=== PATIENT | male | born 1970 | race Caucasian/White ===

== ENCOUNTER 2016-11-04 17:14 | Emergency (ER) | payer BC, OTHER ==
[2016-11-04 17:26] VITALS: BP 137/96
[2016-11-04] MEDS ORDERED: Lidocaine 2% VISCOUS* 15 ML UDC PO ONE (17:49)
[2016-11-04] MEDS ORDERED: Al Hydrox/Mg Hydrox/Simet LIQ* 30 ML UDC PO ONE (17:49)
--- NOTE | 2016-11-04 17:49 | UC ---
Abdominal Pain Male HPI - HPI Summary HPI Summary: The patient comes in today for: 1. Abdominal pain (epigastric) Onset: 8 hours. Palliative/provocative: Nothing makes it better or worse. Leaning forward makes it worse. Leaning back make it "deeper." Quality: Sharp Region: Epigastric. Severity: 9/10 Time: Comes and goes, but mostly there. Associated symptoms: Dysphagia: One and off for a couple of years. He states that it is gotten worse recently to the point of having to drink liquid even with salad. Previous disease (pancreas/stomach): None. Regular provider: Dr. Gould. * - History of Current Complaint Chief Complaint: UCAbdominalPain Stated Complaint: ABDOMINAL PAIN, AND VOMITING Time Seen by Provider: 11/04/16 17:44 Hx Obtained From: Patient, Family/Site Safety Coordinator - Allergies/Home Medications Allergies/Adverse Reactions: Allergies Allergy/AdvReac Type Severity Reaction Status Date / Time No Known Allergies Allergy Verified 11/04/16 17:26 Home Medications: Home Medications Beclomethasone 40 MCG MDI(NF) [Qvar 40 MCG MDI(NF)] 11/04/16 [History] Oxybutynin Chloride (Bulk) [Oxybutinin Chloride] 11/04/16 [History] methylPREDNISolone TAB* [Medrol TAB*] 11/04/16 [History] PMH/Surg Hx/FS Hx/Imm Hx Previously Healthy: No - Hyperactive bladder? Endocrine History Of: Denies: Diabetes, Thyroid Disease, Hyperthyroidism, Hypothyroidism, Dyslipidemia Cardiovascular History Of: Denies: Cardiac Disorders, Hypertension, Pacemaker/ICD, Myocardial Infarction , Congestive Heart Failure, Atrial Fibrillation, Deep Vein Thrombosis, Bleeding Disorders Respiratory History Of: Reports: Asthma Denies: COPD, Bronchitis, Pneumonia, Pulmonary Embolism GI/ History Of: Reports: Gastroesophageal Reflux - Suspected due to history of dysphagia. Denies: Ulcer, Gastrointestinal Bleed, Gall Bladder Disease, Kidney Stones, Diverticulitis, Renal Disease, Urosepsis Neurological History Of: Denies: TIA, CVA, Dementia, Seizures, Migraine Psychological History Of: Denies: Anxiety, Depression, Bipolar Disorder, Schizophrenia, Post Traumatic Stress Disorder Cancer History Of: Denies: Lung Cancer, Colorectal Cancer, Breast Cancer, Prostate Cancer, Cervical Cancer Other History Of: Negative For: HIV, Hepatitis B, Hepatitis C, Anticoagulant Therapy - Surgical History Surgical History: Yes Surgery Procedure, Year, and Place: ANKLE SURGERY, BACK (L5) DISCECTOMY 2003, RIGHT HAND SURGERY X2, vasectomy - Family History Known Family History: Positive: Cardiac Disease, Hypertension - Social History Occupation: Employed Full-time Alcohol Use: Occasionally Substance Use Type: None Smoking Status (MU): Former Smoker Amount Used/How Often: tin per week Have You Smoked in the Last Year: No When Did the Patient Quit Smoking/Using Tobacco: one year long ago Review of Systems Constitutional: Chills Skin: Negative Eyes: Negative ENT: Negative Respiratory: Negative Cardiovascular: Negative Gastrointestinal: Abdominal Pain, Vomiting - Vomited: 4 times/5 hours-- yesterday foods--"Oreo cookies.", Diarrhea - Diarrhea: 2 stoools/5 hours. Genitourinary: Negative All Other Systems Reviewed And Are Negative: Yes Physical Exam Triage Information Reviewed: Yes Appearance: Well-Nourished, Pain Distress - He can't find a comfortable position and is moving during the history taking, moaning at times. Vital Signs: Initial Vital Signs Temp 99.8 F 11/04/16 17:23 Pulse 114 11/04/16 17:23 Resp 18 11/04/16 17:23 BP 137/96 11/04/16 17:23 Pulse Ox 96 11/04/16 17:23 Vital Signs Reviewed: Yes Eyes: Positive: Conjunctiva Clear. Negative: Discharge ENT: Positive: Hearing grossly normal. Negative: Pharyngeal erythema, Nasal congestion, Nasal drainage, TM bulging, TM dull, TM red, Tonsillar swelling, Tonsillar exudate Dental: Negative: Gross Decay/Caries @, Dental Fracture @ Neck: Positive: Supple, Nontender, No Lymphadenopathy. Negative: Nuchal Rigidity Respiratory: Positive: Chest non-tender, Lungs clear, No respiratory distress, No accessory muscle use. Negative: Crackles, Wheezing Cardiovascular: Positive: RRR, No Murmur Abdomen Description: Positive: No Organomegaly, Soft - No marked guarding, Distended, Peritoneal Signs - He had rebound tenderness to palpation of the epigastric area. There was also increased tympany.. Negative: Nontender, Guarding Musculoskeletal: Positive: Strength Intact, ROM Intact, No Edema Neurological: Positive: Alert, Muscle Tone Normal Psychological: Positive: Age Appropriate Behavior, Consolable Skin: Negative: rashes, breakdown Abd Pain Male Course/Dx - Course Course Of Treatment: Patient was told that I recommend that he go to the ER for evaluation fo abdominal pain. He agreed to go by private car. - Differential Dx/Clinical Impression Provider Diagnoses: epigastric abdominal pain. - Physician Notification/Consults Discussed Patient Care With: Dr. Hickman Time Discussed With Above Provider: 18:04 Discharge - Discharge Plan Condition: Stable Disposition: AGAINST MEDICAL ADVICE Additional Instructions: Please go directly to the [facility] ER.
== END 2016-11-04 18:09 | disposition left against medical advice (07) ==
LOC: UCEAST 17:14
DX: R10.13 Epigastric pain (principal); Z87.891 Personal history of nicotine dependence
CPT/HCPCS: 99212; A9270-GY; G0463

== ENCOUNTER 2016-11-04 18:23 | Inpatient (IN) | payer OTHER ==
[2016-11-04] MEDS ORDERED: NS 0.9% 1000 ML* 2,000 ML IV ONE (19:08)
[2016-11-04] MEDS ORDERED: Al Hydrox/Mg Hydrox/Simet LIQ* 30 ML UDC PO ONE (19:08)
[2016-11-04] MEDS ORDERED: Ketorolac INJ* 30 MG/ML 1 ML VIAL IV ONE (19:08)
[2016-11-04] MEDS ORDERED: Lidocaine 2% VISCOUS* 15 ML UDC PO ONE (19:08)
[2016-11-04 19:34] LABS: Hematocrit 50 % (42-52); Hemoglobin 17.2 g/dl (14.0-18.0); Mean Corpuscular HGB Conc 34 g/dl (31-36); Mean Corpuscular Hemoglobin 30 pg (27-31); Mean Corpuscular Volume 88 fL (80-94); Mean Platelet Volume 8 um3 (7.4-10.4); Red Blood Count 5.69 10^6/ul (4.0-5.4); Red Cell Distribution Width 13 % (10.5-15); White Blood Count 10.5 10^3/ul (3.5-10.8)
[2016-11-04 19:50] LABS: BUN/Creatinine Ratio 16.3 (8-20); C Reactive Protein 21.4 mg/L (< 5.00); EGFR African American 81.5 (>60); EGFR Non-African American 63.3 (>60); Globulin 3.2 g/dL (2-4); Magnesium 1.8 mg/dL (1.9-2.7); Potassium 3.5 mmol/L (3.5-5.0); Total Bilirubin 1.3 mg/dL (0.2-1.0); Total Protein 7.2 g/dL (6.4-8.9)
--- NOTE | 2016-11-04 19:50 | ED ---
Abdominal Pain/Male - HPI Summary HPI Summary: Patient arrives to ED as a transfer from with CC of epigastric pain and vomiting since this afternoon. Pain is 10/10, better after vomiting. Denies diarrhea or constipation. States he has vomited 4X and all contents from last nights dinner which were not digested. He feels he may have an SBO. States he has experienced epigastric pain which has subsided in the last with viscous lidocaine, but never associated vomiting with undigested contents. Last BM was today at 2pm. Unable to eat or drink without vomiting. Denies nausea. States he has been on prednisone for many months d/t his asthma. Asthma stable and he denies SOB. Denies chest pain. Denies smoking or other health problems. No history of abdominal surgeries. Patient not a diabetic. - History of Current Complaint Hx Obtained From: Patient Onset/Duration: Sudden Onset Timing: Constant Severity Initially: Moderate Severity Currently: Moderate Pain Intensity: 7 Pain Scale Used: 0-10 Numeric Location: Epigastric Character: Sharp Aggravating Factor(s): Food Alleviating Factor(s): Vomiting Associated Signs And Symptoms: Positive: Negative - Risk Factors Testicular Torsion: Negative Cardiac Risk Factors: Negative <Makenna Hernandez - Last Filed: 11/07/16 08:06> <Abdoulaye Chun - Last Filed: 11/07/16 20:59> - History of Current Complaint Chief Complaint: EDAbdPain Stated Complaint: ABD PAIN/CONV CARE Time Seen by Provider: 11/04/16 18:41 - Allergies/Home Medications Allergies/Adverse Reactions: Allergies Allergy/AdvReac Type Severity Reaction Status Date / Time No Known Allergies Allergy Verified 11/04/16 17:26 PMH/Surg Hx/FS Hx/Imm Hx Previously Healthy: Yes Endocrine/Hematology History: Denies: Hx Anticoagulant Therapy, Hx Diabetes, Hx Thyroid Disease Cardiovascular History: Denies: Hx Congestive Heart Failure, Hx Deep Vein Thrombosis, Hx Hypertension , Hx Myocardial Infarction, Hx Pacemaker/ICD Respiratory History: Reports: Hx Asthma Denies: Hx Chronic Obstructive Pulmonary Disease (COPD), Hx Lung Cancer, Hx Pneumonia, Hx Pulmonary Embolism GI History: Denies: Hx Gall Bladder Disease, Hx Gastrointestinal Bleed, Hx Ulcer, Hx Urosepsis History: Denies: Hx Dialysis, Hx Kidney Stones, Hx Renal Disease Sensory History: Denies: Hx Hearing Aid Neurological History: Denies: Hx Dementia, Hx Migraine, Hx Seizures, Hx Transient Ischemic Attacks (TIA) Psychiatric History: Denies: Hx Anxiety, Hx Depression, Hx Panic Disorder, Hx Schizophrenia, Hx Bipolar Disorder - Surgical History Surgery Procedure, Year, and Place: ANKLE SURGERY, BACK (L5) DISCECTOMY 2003, RIGHT HAND SURGERY X2, vasectomy Infectious Disease History: No Infectious Disease History: Denies: History Other Infectious Disease, Traveled Outside the [place] in Last 30 Days - Family History Known Family History: Positive: Cardiac Disease, Hypertension - Social History Occupation: Employed Full-time Lives: With Family Alcohol Use: None Hx Substance Use: No Substance Use Type: Reports: None Smoking Status (MU): Former Smoker Amount Used/How Often: tin per week Have You Smoked in the Last Year: No <Makenna Hernandez - Last Filed: 11/07/16 08:06> Review of Systems Constitutional: Negative Eyes: Negative ENT: Negative Cardiovascular: Negative Respiratory: Negative Positive: Abdominal Pain - epigastric, Vomiting - 4X Positive: no symptoms reported, see HPI Musculoskeletal: Negative Skin: Negative Neurological: Negative Positive: Anxious All Other Systems Reviewed And Are Negative: Yes <Makenna Hernandez - Last Filed: 11/07/16 08:06> Physical Exam Triage Information Reviewed: Yes Vital Signs On Initial Exam: Initial Vitals Temp Pulse Resp BP Pulse Ox 99.5 F 114 18 136/92 95 11/04/16 18:25 11/04/16 18:25 11/04/16 18:25 11/04/16 18:25 11/04/16 18:25 Vital Signs Reviewed: Yes Appearance: Positive: Well-Appearing, Well-Nourished, Pain Distress Skin: Positive: Warm, Skin Color Reflects Adequate Perfusion Head/Face: Positive: Normal Head/Face Inspection Eyes: Positive: EOMI, MARGIE ENT: Positive: Pharynx normal Neck: Positive: Supple, Nontender Respiratory/Lung Sounds: Positive: Wheezes - at baseline per patient d/t asthma Cardiovascular: Positive: Normal, RRR Abdomen Description: Positive: Soft, Guarding - at epigastrum, Other: - tenderness over epigastrum, non-tender in all 4 quadrants Musculoskeletal: Positive: Normal, Strength/ROM Intact Neurological: Positive: Normal, Speech Normal Psychiatric: Positive: Normal AVPU Assessment: Alert - [place] Coma Scale Coma Scale Total: 15 <Makenna Hernandez - Last Filed: 11/07/16 08:06> Vital Signs On Initial Exam: Initial Vitals Temp Pulse Resp BP Pulse Ox 99.5 F 114 18 136/92 95 11/04/16 18:25 11/04/16 18:25 11/04/16 18:25 11/04/16 18:25 11/04/16 18:25 <Abdoulaye Chun - Last Filed: 11/07/16 20:59> Diagnostics - Vital Signs Vital Signs Temp Pulse Resp BP Pulse Ox 11/04/16 18:25 99.5 F 114 18 136/92 95 - Laboratory Result Diagrams: 11/05/16 06:15 11/07/16 06:35 Lab Statement: Any lab studies that have been ordered have been reviewed, and results considered in the medical decision making process. <Makenna Hernandez - Last Filed: 11/07/16 08:06> - Vital Signs Vital Signs Temp Pulse Resp BP Pulse Ox 11/05/16 00:26 82 16 126/77 93 11/04/16 23:30 81 18 129/85 93 11/04/16 22:40 95 18 133/91 94 11/04/16 22:39 16 11/04/16 21:27 99 18 123/90 93 11/04/16 18:25 99.5 F 114 18 136/92 95 - Laboratory Lab Results: Lab Results 11/04/16 11/04/16 11/04/16 Range/Units 19:25 19:25 20:55 WBC 10.5 (3.5-10.8) 10^3/ul RBC 5.69 H (4.0-5.4) 10^6/ul Hgb 17.2 (14.0-18.0) g/dl Hct 50 (42-52) % MCV 88 (80-94) fL MCH 30 (27-31) pg MCHC 34 (31-36) g/dl RDW 13 (10.5-15) % Plt Count 196 (150-450) 10^3/ul MPV 8 (7.4-10.4) um3 Neut % (Auto) 86.6 H (38-83) % Lymph % (Auto) 7.1 L (25-47) % [place] % (Auto) 6.0 (1-9) % Eos % (Auto) 0.2 (0-6) % Baso % (Auto) 0.1 (0-2) % Absolute Neuts (auto) 9.1 H (1.5-7.7) 10^3/ul Absolute Lymphs (auto) 0.7 L (1.0-4.8) 10^3/ul Absolute Monos (auto) 0.6 (0-0.8) 10^3/ul Absolute Eos (auto) 0 (0-0.6) 10^3/ul Absolute Basos (auto) 0 (0-0.2) 10^3/ul Absolute Nucleated RBC 0 10^3/ul Nucleated RBC % 0 Sodium 133 (133-145) mmol/L Potassium 3.5 (3.5-5.0) mmol/L Chloride 100 L (101-111) mmol/L Carbon Dioxide 27 (22-32) mmol/L Anion Gap 6 (2-11) mmol/L BUN 20 (6-24) mg/dL Creatinine 1.23 H (0.67-1.17) mg/dL Est GFR ( Amer) 81.5 (>60) Est GFR (Non-Af Amer) 63.3 (>60) BUN/Creatinine Ratio 16.3 (8-20) Glucose 97 (70-100) mg/dL Calcium 9.0 (8.6-10.3) mg/dL Magnesium 1.8 L (1.9-2.7) mg/dL Total Bilirubin 1.30 H (0.2-1.0) mg/dL AST 34 (13-39) U/L ALT 133 H (7-52) U/L Alkaline Phosphatase 68 (34-104) U/L C-Reactive Protein 21.40 H (< 5.00) mg/L Total Protein 7.2 (6.4-8.9) g/dL Albumin 4.0 (3.2-5.2) g/dL Globulin 3.2 (2-4) g/dL Albumin/Globulin Ratio 1.3 (1-3) Amylase 34 (29-103) U/L Lipase 26 (11.0-82.0) U/L Urine Color Yellow Urine Appearance Clear Urine pH 5.0 (5-9) Ur Specific [place] 1.016 (1.010-1.030) Urine Protein Negative (Negative) Urine Ketones Negative (Negative) Urine Blood Negative (Negative) Urine Nitrate Negative (Negative) Urine Bilirubin Negative (Negative) Urine Urobilinogen Negative (Negative) Ur Leukocyte Esterase Negative (Negative) Urine Glucose Negative (Negative) Result Diagrams: 11/05/16 06:15 11/07/16 06:35 Lab Statement: Any lab studies that have been ordered have been reviewed, and results considered in the medical decision making process. <Abdoulaye Chun - Last Filed: 11/07/16 20:59> Re-Evaluation - Re-Evaluation First Eval Change: Improved - Patient improved with toradol and zofran, and now tolerating PO Second Eval Change: Worse - vomited and now epigastric pain worse Third Eval Change: Unchanged - patient not improved and failed pain management 3x <Makenna Hernandez - Last Filed: 11/07/16 08:06> Abdominal Pain Fem Course/Dx - Course Course Of Treatment: Patient with severe epigastric pain and 1x episode of vomiting, not tolerating PO in ED - vomited twice after arrival. CT without PO contrast ordered. Pain management, GI cocktail. CT shows possible SBO. Patient feeling better and asking to be DC'd. PO challenge and plan to send home with pain management and clear liquid diet for 24 hours. Upon discharge, patient began to vomit again with severe epigastric pain. PO contrast given for better picture per MD. SBO confirmed. Dr. Santizo consulted at 1:20a. Patient refusing NG tube at this time. Dr. Navarro called at 1:40a for admission. Admitted to [facility] for intractable pain and surgical consult. - Diagnoses Differential Diagnosis/HQI/PQRI: Bowel Obstruction, Gall Bladder Disease, Ischemic Bowel, Peptic Ulcer Disease <Makenna Hernandez - Last Filed: 11/07/16 08:06> - Course Assessment/Plan: I was available for consultation. This patient was seen by mid level provider. The patient was not presented, seen, or examined by me. WR. <Abdoulaye Chun - Last Filed: 11/07/16 20:59> - Diagnoses Provider Diagnoses: Small bowel obstruction Discharge <Makenna Hernandez - Last Filed: 11/07/16 08:06> <Abdoulaye Chun - Last Filed: 11/07/16 20:59> - Discharge Plan Condition: Good Disposition: ADMITTED TO [facility]
--- NOTE | 2016-11-04 20:21 | RAD ---
CLINICAL HISTORY: Vomiting, abdominal pain, delayed gastric emptying COMPARISON: None TECHNIQUE: Multiple contiguous axial CT scans were obtained of the abdomen and pelvis, without intravenous contrast enhancement. Coronal and sagittal multiplanar reformations are submitted for review. Oral contrast was not administered. FINDINGS: The study is limited by the lack of intravenous contrast. This limits evaluation of the solid organs and vasculature. LUNG BASES: The lung bases are clear. LIVER: The liver is diffusely low in attenuation compared to the spleen. There are no focal hepatic parenchymal masses. BILE DUCTS: There is no intrahepatic or extrahepatic biliary dilatation. GALLBLADDER: The gallbladder is normal, without pericholecystic inflammatory change. PANCREAS: The pancreas is normal, without mass or ductal dilatation. SPLEEN: Normal in size and appearance. UPPER GI TRACT: Evaluation of the gastrointestinal tract is limited by incomplete gastric distention. The upper GI tract is unremarkable. SMALL BOWEL AND MESENTERY: There is diffuse distention and mild dilatation of the proximal small bowel. There is transition to decompressed small bowel within the midabdomen. COLON: The colon is normal in contour, course, caliber. There is no pericolonic inflammatory change. ADRENALS: Normal bilaterally. KIDNEYS: The kidneys are normal in shape, size, contour, and axis. There is no hydronephrosis or nephrolithiasis. BLADDER: The bladder is smooth in contour. PELVIC ORGANS: The prostate gland is normal. The seminal vesicles are symmetric. AORTA: The aorta is normal. IVC: Unremarkable LYMPH NODES: There is no lymphadenopathy by size criteria. ABDOMINAL WALL: There is no evidence for abdominal wall hernia. BONES AND SOFT TISSUES: There are mild diffuse degenerative changes. OTHER: None IMPRESSION: 1. DISTENTION WITH MILD DILATATION OF THE PROXIMAL SMALL BOWEL WITH TRANSITION TO DECOMPRESSED SMALL BOWEL IN THE MIDABDOMEN CONSISTENT WITH EARLY OR PARTIAL SMALL BOWEL OBSTRUCTION. 2. FATTY INFILTRATION OF THE LIVER.
[2016-11-04 21:07] LABS: Urine Bilirubin Negative (Negative); Urine Glucose Negative (Negative); Urine Nitrite Negative (Negative)
[2016-11-04] MEDS ORDERED: Morphine INJ* 2 MG/ML 1 ML CARPUJECT IV ONE (22:14)
[2016-11-04] MEDS ORDERED: Ondansetron INJ* 2 MG/ML VIAL IV ONE (22:14)
[2016-11-04] MEDS ORDERED: Iohexol 300* (CONTRAST) 10 ML SDV IV ONE (22:50)
--- NOTE | 2016-11-05 01:43 | HP ---
H&P (Free Text) History and Physical: PCP: Earl Velásquez MD Date/Time of Evaluation: 11/05/2016 0145 CC: abdominal pain HPI: Mr Snyder is a 46YO male presenting with rapid onset sharp epigastric pain associated with N/V/D but without F/C or other issues. He denies HX abdominal surgery, but does have a HX of similar episode. Last bowel movement was this evening and loose, no bloody or black content. He denies exacerbating or alleviating factors. Work up is notable for a CT abd/pel read as early SBO. Vitals were initially tachycardic, but normalized w/ IVFs. Labs reveal a stable creatinine of 1.23, total bilirubin of 1.3, & AST/ALT of 34/133. PMedHx asthma Allergies No Known Allergies Allergy (Verified 11/04/16 17:26) Ambulatory Orders Nursing to reconcile PSurgHx R 3rd finger trigger release L-spine surgery vasectomy R ankle ORIF SocHx: HX light cigarettes & heavy chewing tobacco but none now, occasional alcohol, no recreational drugs; lives with his , works at [employer]; full code status FamHx: Father: DM2, Mother: OA ROS: as above, otherwise reviewed and all were negative Constitutional: NAD, normally developed, obese white male vitals: Vital Signs Temp 37.5 C 11/04/16 18:25 Pulse 82 11/05/16 00:26 Resp 16 11/05/16 00:26 BP 126/77 11/05/16 00:26 Pulse Ox 93 11/05/16 00:26 Intake & Output 11/04/16 11/04/16 11/05/16 11:59 23:59 11:59 Intake Total 1999 Balance 1999 Weight 195 lb Intake: IV Fluids 1999 HEENM: atraumatic; sclera/conjunctiva: non-icteric/clear; hearing: clinically intact; oropharynx: clear, mucosa moist Neck: soft tissue: non-tender; thyroid: normal Pulmonary: clear to auscultation bilaterally, good aeration, no accessory muscle use CV: RR/RR, normal S1S2, no carotid bruit, no jugular venous distention, 2+ B DP/ PT, no edema Abdominal: soft, non-distended, mildly diffusely tender worst in epigastrum without rebound/guarding/rigidity, normoactive bowel sounds, no hepatosplenomegaly or masses, no costovertebral angle tenderness Musculoskeletal: general: grossly intact; gait: stable Integumental: normal appearance and texture Psychiatric orientation: AA&O to PPS affect: calm mood: cooperative eye contact: good content: reliable responses: timely insight: good Testing: Lab Results 11/04/16 11/04/16 11/04/16 Range/Units 19:25 19:25 20:55 WBC 10.5 (3.5-10.8) 10^3/ul RBC 5.69 H (4.0-5.4) 10^6/ul Hgb 17.2 (14.0-18.0) g/dl Hct 50 (42-52) % MCV 88 (80-94) fL MCH 30 (27-31) pg MCHC 34 (31-36) g/dl RDW 13 (10.5-15) % Plt Count 196 (150-450) 10^3/ul MPV 8 (7.4-10.4) um3 Neut % (Auto) 86.6 H (38-83) % Lymph % (Auto) 7.1 L (25-47) % [place] % (Auto) 6.0 (1-9) % Eos % (Auto) 0.2 (0-6) % Baso % (Auto) 0.1 (0-2) % Absolute Neuts (auto) 9.1 H (1.5-7.7) 10^3/ul Absolute Lymphs (auto) 0.7 L (1.0-4.8) 10^3/ul Absolute Monos (auto) 0.6 (0-0.8) 10^3/ul Absolute Eos (auto) 0 (0-0.6) 10^3/ul Absolute Basos (auto) 0 (0-0.2) 10^3/ul Absolute Nucleated RBC 0 10^3/ul Nucleated RBC % 0 Sodium 133 (133-145) mmol/L Potassium 3.5 (3.5-5.0) mmol/L Chloride 100 L (101-111) mmol/L Carbon Dioxide 27 (22-32) mmol/L Anion Gap 6 (2-11) mmol/L BUN 20 (6-24) mg/dL Creatinine 1.23 H (0.67-1.17) mg/dL Est GFR ( Amer) 81.5 (>60) Est GFR (Non-Af Amer) 63.3 (>60) BUN/Creatinine Ratio 16.3 (8-20) Glucose 97 (70-100) mg/dL Calcium 9.0 (8.6-10.3) mg/dL Magnesium 1.8 L (1.9-2.7) mg/dL Total Bilirubin 1.30 H (0.2-1.0) mg/dL AST 34 (13-39) U/L ALT 133 H (7-52) U/L Alkaline Phosphatase 68 (34-104) U/L C-Reactive Protein 21.40 H (< 5.00) mg/L Total Protein 7.2 (6.4-8.9) g/dL Albumin 4.0 (3.2-5.2) g/dL Globulin 3.2 (2-4) g/dL Albumin/Globulin Ratio 1.3 (1-3) Amylase 34 (29-103) U/L Lipase 26 (11.0-82.0) U/L Urine Color Yellow Urine Appearance Clear Urine pH 5.0 (5-9) Ur Specific [place] 1.016 (1.010-1.030) Urine Protein Negative (Negative) Urine Ketones Negative (Negative) Urine Blood Negative (Negative) Urine Nitrate Negative (Negative) Urine Bilirubin Negative (Negative) Urine Urobilinogen Negative (Negative) Ur Leukocyte Esterase Negative (Negative) Urine Glucose Negative (Negative) CT abd/pel WO, personally reviewed: IMPRESSION: 1. DISTENTION WITH MILD DILATATION OF THE PROXIMAL SMALL BOWEL WITH TRANSITION TODECOMPRESSED SMALL BOWEL IN THE MIDABDOMEN CONSISTENT WITH EARLY OR PARTIAL SMALL BOWELOBSTRUCTION. 2. FATTY INFILTRATION OF THE LIVER. Impression: 46M presenting with N/V & abdominal pain with finding of SBO on CT abd/pel WO DIAGNOSIS & PLAN Primary SBO : bowel rest, NPO x/ meds w/ sips H2O : IVFs : pain control : consider surgical consult if no improvement w/i 48H, sooner for worsening : supportive care elevated total bilirubin & ALT : check limited US RUQ hypoMagnesemia : replace Secondary asthma : albuterol nebs PRN Admission Rational: inpatient for management of SBO not anticipated to improve adequately to allow for discharge w/i 48h DVTp: heparin SQ Code Status: full HCP:
[2016-11-05] MEDS ORDERED: Magnesium Sulfate 2 GM IV* 2 GM/50 ML BAG IVPB ONE (01:45)
[2016-11-05] MEDS ORDERED: Albuterol 2.5 MG/3 ML NEB.SOL* (0.083%) INH PRN (01:45)
[2016-11-05] MEDS ORDERED: Melatonin (NF) 3 MG TAB PO PRN (01:45)
[2016-11-05] MEDS ORDERED: Acetaminophen TAB* 325 MG PO PRN (01:45)
[2016-11-05] MEDS: HYDROmorphone INJ* 1 MG/ML CARPUJECT SYRINGE IV PRN ×2 (02:10→03:31)
[2016-11-05] MEDS: NS 0.9% 1000 ML* 1,000 ML IV SCH ×3 (02:55→18:03)
[2016-11-05] MEDS: Ondansetron INJ* 2 MG/ML VIAL IV PRN (03:30)
[2016-11-05 07:11] LABS: Hematocrit 44 % (42-52); Hemoglobin 15.5 g/dl (14.0-18.0); Mean Corpuscular HGB Conc 35 g/dl (31-36); Mean Corpuscular Hemoglobin 31 pg (27-31); Mean Corpuscular Volume 88 fL (80-94); Mean Platelet Volume 8 um3 (7.4-10.4); Red Blood Count 5.02 10^6/ul (4.0-5.4); Red Cell Distribution Width 14 % (10.5-15); White Blood Count 10.1 10^3/ul (3.5-10.8)
[2016-11-05 07:23] LABS: Albumin 3.4 g/dL (3.2-5.2); BUN/Creatinine Ratio 14.8 (8-20); Calcium 7.8 mg/dL (8.6-10.3); Direct Bilirubin 0.2 mg/dL (0.03-0.18); EGFR African American 94.7 (>60); EGFR Non-African American 73.6 (>60); Globulin 2.6 g/dL (2-4); Potassium 3.5 mmol/L (3.5-5.0); Total Bilirubin 1.2 mg/dL (0.2-1.0)
--- NOTE | 2016-11-05 07:58 | RAD ---
CLINICAL HISTORY: Epigastric pain and emesis COMPARISON: Similar CT examination dated November 04, 2016 TECHNIQUE: Contrast enhanced CT examination of the abdomen and pelvis from the lung bases through the initial tuberosities. The patient received 100 mL Omnipaque 300 intravenously prior to imaging.The patient received oral contrast as well prior to imaging. FINDINGS: VISUALIZED LUNG BASES: There is dependent hypoventilatory change at the right lung base greater than the left. Otherwise the visualized lung bases are grossly clear. There is no pleural effusion. ABDOMEN AND PELVIS: The liver is homogenously hypodense. There are no focal liver masses or intrahepatic biliary duct dilatation. The spleen, pancreas and adrenal glands are grossly normal in appearance. The gallbladder is normal. The kidneys are normal in appearance without focal mass, calcification or signs of hydronephrosis. The oral contrast has only progressed as far as the mid ileum. There is dilatation of the small bowel measuring up to 3.6 cm in diameter with air-fluid levels visualized. The transition point from dilated to decompressed small bowel occurs in the right mid level abdomen approximately the mid to distal ileum (coronal image 38 of 121). There is gas and stool seen throughout the length of the colon but the colon is mostly decompressed. The patient's normal appendix is identified in the right lower quadrant (coronal image 34) There is no gross retroperitoneal or mesenteric lymphadenopathy. There is trace ascites tracking along the right paracolic gutter (image 78 of 112). The pelvic viscera is normal in appearance. A right vasectomy clip is incidentally noted. The abdominal aorta and iliac arteries are normal in course and diameter. Degenerative changes include multilevel loss of intervertebral disc height involving the lower thoracic and lumbar spine.There are no sinister bone lesions. IMPRESSION: 1. CT findings are compatible with partial small bowel obstruction with a transition point identified at the mid to distal ileum at the mid-level right abdomen. 2. Hepatic steatosis. 3. There are additional chronic, degenerative and iatrogenic findings as described in the body of the report.
[2016-11-05] MEDS: Pantoprazole IV* 40 MG IV SCH (09:24)
--- NOTE | 2016-11-05 09:32 | RAD ---
Indication: Elevated liver enzymes. Real-time sonography of the right upper quadrant was performed. The liver measures 18 cm in length. It is diffusely increased in echogenicity consistent with hepatic steatosis. The gallbladder demonstrates no gallstones, pericholecystic fluid or wall thickening. Common duct measures 4 mm. Right kidney measures 11.0 x 5.1 x 4.9 cm with no hydronephrosis. Pancreas demonstrates no mass or pancreatic duct dilatation. IMPRESSION: Echogenic liver consistent with hepatic steatosis. No evidence of cholelithiasis or biliary duct dilatation is noted.
--- NOTE | 2016-11-05 12:13 | PN ---
Subjective Date of Service: 11/05/16 Interval History: Patient seen this morning. Still having some epigastric pain. Has been having frequent loose stools. No nausea. Family History: Unchanged from Admission Social History: Unchanged from Admission Past Medical History: Unchanged from Admission Objective Active Medications: Acetaminophen (Tylenol Tab*) 650 mg PO Q6H PRN Albuterol (Ventolin 2.5 Mg/3 Ml Neb.Kristin*) 2.5 mg INH Q2H PRN Heparin Sodium (Porcine) (Heparin Vial(*)) 5,000 units SUBCUT Q8HR ANA LAURA Hydromorphone HCl (Dilaudid Iv*) 1 mg IV Q2H PRN Sodium Chloride (Ns 0.9% 1000 Ml*) 1,000 mls @ 125 mls/hr IV PER RATE ANA LAURA Melatonin (Melatonin (Nf)) 3 mg PO BEDTIME PRN; Protocol Ondansetron HCl (Zofran Inj*) 4 mg IV Q6H PRN Pantoprazole Sodium (Protonix Iv*) 40 mg IV DAILY [facility] Vital Signs 11/05/16 11/05/16 11/05/16 02:10 02:45 03:04 Temperature 99.8 F Pulse Rate 88 Respiratory 20 20 20 Rate Blood Pressure 127/77 (mmHg) O2 Sat by Pulse 93 Oximetry 11/05/16 11/05/16 11/05/16 03:10 03:31 04:31 Temperature Pulse Rate Respiratory 20 20 20 Rate Blood Pressure (mmHg) O2 Sat by Pulse Oximetry 11/05/16 11/05/16 11/05/16 07:56 08:02 09:48 Temperature 98.4 F Pulse Rate 83 85 Respiratory 16 16 14 Rate Blood Pressure 125/71 (mmHg) O2 Sat by Pulse 94 96 Oximetry Oxygen Devices in Use Now: None Appearance: Middle-aged, M, sitting in bed in NAD Eyes: No Scleral Icterus Ears/Nose/Mouth/Throat: Mucous Membranes Moist Neck: NL Appearance and Movements; NL JVP Respiratory: Symmetrical Chest Expansion and Respiratory Effort, Clear to Auscultation Cardiovascular: NL Sounds; No Murmurs; No JVD, RRR Abdominal: - - Soft, non-distended, TTP in RLQ and epigastric area, BS+ Lymphatic: No Cervical Adenopathy Extremities: No Edema Skin: No Rash or Ulcers Neurological: Alert and Oriented x 3 Result Diagrams: 11/05/16 06:15 11/05/16 06:15 Assess/Plan/Problems-Billing Assessment: pSBO in a 46 yo M with hx of asthma - Patient Problems (1) Partial small bowel obstruction Current Visit: Yes Comment: Symptoms seem to be improving. Appreciate surgery assistance. Sips of clears today. Continue IVF and analgesia. (2) Transaminitis Current Visit: Yes Comment: mild. US unremarkable, trending back down. (3) DVT prophylaxis Current Visit: Yes Comment: HSQ Status and Disposition: Inpatient for SBO
--- NOTE | 2016-11-05 14:58 | CONS ---
CONSULTATION REPORT: DATE OF CONSULT: 11/05/16 REFERRING PROVIDER: Dr. Yuval Cordero, Hospitalist. LOCATION: The patient is seen in his hospital bed on the 4th floor on 11/05/16. REASON FOR CONSULTATION: Abdominal pain, nausea, and vomiting and possible small bowel obstruction. HISTORY OF PRESENT ILLNESS: Mr. Dangelo Snyder is a 46-year-old gentleman with a history of asthma, who otherwise is healthy, who presented to the emergency room after he developed onset of epigastric abdominal pain sometime yesterday morning. This was followed by nausea and vomiting. He noted the vomitus contained what he had eaten the night before including undigested food as well as Oreo cookies. Did not have any diarrhea that day, but as the pain became quite severe, he presented to the emergency room last evening. He had had no blood per rectum. There has been no hematemesis. He had some pain that radiates through to his mid back area. When seen in the emergency room, he was noted to be slightly tachycardic, but was afebrile. Laboratory values showed a normal white blood cell count and a slightly elevated creatinine. He had a total bilirubin of 1.3 with a C- reactive protein of 21.4. He underwent 2 CT scans, initial one was done without oral or IV contrast, which showed finding congruent for some proximally distended small bowel suggesting an early small bowel obstruction. He subsequently underwent a second CAT scan, which showed CAT scan finding compatible with a partial small bowel obstruction with perhaps a transition point noted in the [id number] ileum. He also underwent an ultrasound of his right upper quadrant due to his mild elevation in his total bilirubin and this study was unremarkable. He has been admitted to the hospitalist service, kept n.p.o., and started on IV fluids, and surgical consultation was obtained. Since his admission to the 4th floor last night, he said he has had multiple watery loose bowel movements with flatus. He still has the epigastric discomfort; however, does not have generalized crampy abdominal pain and has not had any further nausea or vomiting. PAST MEDICAL HISTORY: Asthma. PAST SURGICAL HISTORY: 1. No abdominal surgery. 2. Spine surgery. 3. Vasectomy. 4. Right ankle ORIF. MEDICATIONS: Include: 1. Methylprednisolone. 2. Oxybutynin. 3. Beclomethasone inhaler. 4. Albuterol inhaler. ALLERGIES: He has no known drug allergies. FAMILY HISTORY: His father with diabetes, his mother with arthritis. SOCIAL HISTORY: He works at [employer] He is . He chews tobacco quite heavily. Does not smoke. Occasional alcohol. No recreational drugs. REVIEW OF SYSTEMS: As above, otherwise reviewed were unremarkable. He denied any chest pain, shortness of breath. Pulmonary: There has been no wheezing or hemoptysis. GI: As per above. He has no chronic abdominal discomfort. He has never had symptoms similar to this. All he does is complain of some dysphagia at times. He is not certain if he has undergone a colonoscopy. PHYSICAL EXAM: Temperature 98.4, pulse 83, blood pressure 125/71. General: Well- developed, well-nourished male, appears to be in no apparent distress. He is quite alert, conversive, and very pleasant. HEENT: His sclerae are anicteric. Oral mucosa is slightly dry. His trachea is midline. There is no cervical adenopathy. Lungs: Clear to auscultation with normal respiratory effort. Heart: Regular rate and rhythm without murmurs, rubs, gallops. Abdomen: Soft and slightly nondistended. He had diminished bowel sounds throughout. There are no prior surgical incisions. I appreciate no umbilical or inguinal hernias. He has some tenderness in the epigastric area without rebound or guarding. There are no peritoneal signs. Psychiatric: He is awake , alert, and oriented x3. He has normal judgment and insight. Extremities: Lower extremities showed no evidence of edema or cyanosis. DIAGNOSTIC STUDIES/LAB DATA: I did review both CT scan images as well as the ultrasound study done today. IMPRESSION: Abdominal pain, nausea, and vomiting with the CT scan worrisome for possible small bowel obstruction in a patient who has not had prior abdominal surgery. However, after admission to the hospital, he has had multiple loose bowel movements, passing some flatus, still has epigastric discomfort. At this point, it certainly could have been an adhesive band causing a bowel obstruction, but he has rapid return of gastrointestinal function. He also has not had prior abdominal surgery, although there can still be congenital bands that could cause obstruction. With the rapid development of diarrhea just after admission and with his history of vomiting, I suspect that this is more likely an enteritis than a small bowel obstruction. For now, recommend continued observation with keeping him n.p.o. and IV fluids and watch him over the next 12 to 24 hours. Certainly if his symptoms worsen, imaging may be repeated. I discussed all of this with him. I also discussed this with Dr. Cordero. CC: [facility]; Dr. Kt Velásquez in [place]* [id number]/[facility] #: [id number] [facility]
[2016-11-06] MEDS: Diphenoxylat/Atrop 2.5-0.025M* 1 TAB PO PRN ×2 (00:43→06:33)
[2016-11-06] MEDS: NS 0.9% 1000 ML* 1,000 ML IV SCH ×2 (02:44→12:12)
[2016-11-06] MEDS: Heparin VIAL(*) 5000 UNITS/ML VIAL (FIVE THOUSAND) SUBCUT SCH ×4 (06:18→22:20)
[2016-11-06] MEDS: HYDROmorphone INJ* 1 MG/ML CARPUJECT SYRINGE IV PRN (06:34)
[2016-11-06 06:36] LABS: Calcium 8.2 mg/dL (8.6-10.3); EGFR African American 103.5 (>60); EGFR Non-African American 80.4 (>60)
[2016-11-06] MEDS ORDERED: Pneumococcal *Vac Polyvalent 0.5 ML VIAL IM ONE (09:00)
[2016-11-06] MEDS: Pantoprazole IV* 40 MG IV SCH (09:17)
--- NOTE | 2016-11-06 10:10 | PN ---
Subjective Date of Service: 11/06/16 Interval History: Patient seen this morning. Reports continued abdominal pain, frequent watery, low-volume BMs. Also reporting some nausea. Some misunderstanding as patient was written for sips of clears but had significant intake (>2L). Family History: Unchanged from Admission Social History: Unchanged from Admission Past Medical History: Unchanged from Admission Objective Active Medications: Acetaminophen (Tylenol Tab*) 650 mg PO Q6H PRN Albuterol (Ventolin 2.5 Mg/3 Ml Neb.Kristin*) 2.5 mg INH Q2H PRN Heparin Sodium (Porcine) (Heparin Vial(*)) 5,000 units SUBCUT Q8HR ANA LAURA Hydromorphone HCl (Dilaudid Iv*) 1 mg IV Q2H PRN Sodium Chloride (Ns 0.9% 1000 Ml*) 1,000 mls @ 125 mls/hr IV PER RATE ANA LAURA Melatonin (Melatonin (Nf)) 3 mg PO BEDTIME PRN; Protocol Ondansetron HCl (Zofran Inj*) 4 mg IV Q6H PRN Pantoprazole Sodium (Protonix Iv*) 40 mg IV DAILY COUNT [facility]CLUDES [facility] Vital Signs 11/05/16 11/05/16 11/05/16 12:34 16:20 18:03 Temperature 98.3 F 97.7 F Pulse Rate 77 76 Respiratory 16 18 Rate Blood Pressure 137/69 128/85 (mmHg) O2 Sat by Pulse 95 95 94 Oximetry 11/05/16 11/05/16 11/05/16 19:15 20:00 23:38 Temperature 97.5 F 97.8 F Pulse Rate 68 61 Respiratory 17 16 16 Rate Blood Pressure 140/90 119/79 (mmHg) O2 Sat by Pulse 96 95 Oximetry 11/06/16 11/06/16 11/06/16 00:43 02:43 06:33 Temperature Pulse Rate Respiratory 16 14 16 Rate Blood Pressure (mmHg) O2 Sat by Pulse Oximetry 11/06/16 11/06/16 11/06/16 06:34 07:14 07:34 Temperature 97.4 F Pulse Rate 43 Respiratory 16 16 16 Rate Blood Pressure 122/89 (mmHg) O2 Sat by Pulse 96 Oximetry 11/06/16 11/06/16 11/06/16 07:49 07:51 08:20 Temperature Pulse Rate 65 Respiratory 16 16 16 Rate Blood Pressure (mmHg) O2 Sat by Pulse 93 Oximetry 11/06/16 11/06/16 08:32 08:33 Temperature Pulse Rate 65 Respiratory 16 16 Rate Blood Pressure (mmHg) O2 Sat by Pulse 93 Oximetry Oxygen Devices in Use Now: None Appearance: Middle-aged, M, sitting in bed in mild discomfort Eyes: No Scleral Icterus Ears/Nose/Mouth/Throat: - - Dry MM Neck: NL Appearance and Movements; NL JVP Respiratory: Symmetrical Chest Expansion and Respiratory Effort, Clear to Auscultation Cardiovascular: NL Sounds; No Murmurs; No JVD, RRR Abdominal: - - Soft, non-distended, TTP in epigastric area and RLQ, BS hyperactive, no rebound/guarding Lymphatic: No Cervical Adenopathy Extremities: No Edema Skin: No Rash or Ulcers Neurological: Alert and Oriented x 3 Result Diagrams: 11/05/16 06:15 11/06/16 05:53 Assess/Plan/Problems-Billing Assessment: pSBO in a 46 yo M with hx of asthma - Patient Problems (1) Partial small bowel obstruction Current Visit: Yes Comment: Will repeat AXR. Will make patient NPO. Appreciate surgery assistance. Continue IVF and analgesia. (2) Transaminitis Current Visit: Yes Comment: mild. US unremarkable, trending back down. (3) DVT prophylaxis Current Visit: Yes Comment: HSQ Status and Disposition: Inpatient for SBO
--- NOTE | 2016-11-06 10:25 | PN ---
Progress Note - Progress Note SOAP: Subjective:frequent watery stools,passing flatus;mild nausea,no vomiting;crampy upper abd pain [] Objective: Vital Signs Temp 97.4 F 11/06/16 07:14 Pulse 65 11/06/16 08:32 Resp 16 11/06/16 08:33 BP 122/89 11/06/16 07:14 Pulse Ox 93 11/06/16 08:32 Intake & Output 11/05/16 11/06/16 11/06/16 18:59 06:59 18:59 Intake Total 2739 1240 1408 Output Total 510 7600 Balance 8269 -1358 1408 Intake: IV Fluids 1859 1408 NS (0.9%) 1859 1408 Oral 880 1240 Output: Urine 510 7600 Other: Estimated Void Medium Medium Date of Last Bowel 11/05/2016 Movement # Bowel Movements 1 0 Estimated Stool Amount Small # Voids 3 10 abd:hyperactive bs,soft,nondistended,tender in epigastrium,no guarding or rebound [] Assessment:no peritoneal signs,likely viral [] Plan:discussed with hospitalist Dr Cordero and Dr Nieto,AXR today,continue clear liquids and IV fluids,pain management []
[2016-11-06] MEDS: Ondansetron INJ* 2 MG/ML VIAL IV PRN (10:26)
--- NOTE | 2016-11-06 12:26 | RAD ---
Indication: Abdominal pain. Gastroenteritis. Assess for resolution of small bowel obstruction. Comparison: November 05, 2016 CT. Technique: Supine abdomen. Report: No residual dilated small bowel loops evident. Mild gas distention of the colon without significant dilatation. No suspicious calcifications or mass effect. Unremarkable soft tissue contours. IMPRESSION: Resolution of previous small bowel obstruction.
[2016-11-06] MEDS ORDERED: HYDROmorphone INJ* 1 MG/ML CARPUJECT SYRINGE IV PRN (15:48)
--- NOTE | 2016-11-06 22:21 | PN ---
Progress Note - Progress Note SOAP: Subjective: I saw the patient at 1230 today. He is still having epigastric pain and anorexia but no nausea or vomiting. He has had multiple loose BM's and is passing flatus. He has no lower abdominal pain. Objective: Temp Pulse Resp BP Pulse Ox 97.9 F 73 16 132/77 97 11/06/16 15:38 11/06/16 15:38 11/06/16 20:00 11/06/16 15:38 11/06/16 15:38 PEX: Comfortable Abd is soft and non-distended. Bowel sounds are present and are normoactive throughout. He has some mild epigastric tenderness without guarding, rebound or rigidity. The remainder of his abdomen has no tenderness. Laboratory Results - last 24 hr 11/06/16 05:53 Sodium 137 Potassium 4.0 Chloride 106 Carbon Dioxide 26 Anion Gap 5 BUN 9 Creatinine 1.00 Est GFR ( Amer) 103.5 Est GFR (Non-Af Amer) 80.4 BUN/Creatinine Ratio 9.0 Glucose 88 Calcium 8.2 L AXR today--air throughout colon with no small bowel air or evidence of SBO Assessment: Abdominal pain/nausea and vomiting/copious diarrhea--slowly improving. Despite the reading on the initial CT scan I don't believe he had a small bowel obstruction and most likely is suffering from acute gastroenteritis. Shortly after his admission he started having copious watery diarrhea and he still has epigastric pain despite clinically not having evidence of obstruction. I discussed this with him and his and answered their questions concerning this. Plan: Continue IVF Start po as tolerated Continue observation All above discussed with Dr. Cordero.
[2016-11-07] MEDS: Heparin VIAL(*) 5000 UNITS/ML VIAL (FIVE THOUSAND) SUBCUT SCH (05:14)
[2016-11-07 07:15] LABS: BUN/Creatinine Ratio 7.9 (8-20); Calcium 8.8 mg/dL (8.6-10.3); EGFR African American 102.3 (>60); EGFR Non-African American 79.5 (>60); Potassium 3.8 mmol/L (3.5-5.0)
[2016-11-07 07:49] VITALS: BP 121/76
[2016-11-07] MEDS: Pantoprazole IV* 40 MG IV SCH (08:22)
--- NOTE | 2016-11-07 10:38 | DCNOTE ---
Patient seen this morning. Has been tolerating liquids with no issue, also had some crackers. Has been passing gas, BMs have slowed, none since yesterday afternoon. On exam, RRR, s1 and s2 present, no m/g/r, abd soft, non-distended, minimal TTP in epigastric area, BS+ Possible SBO has likely resolved, also agree with Dr. Nieto patient may have had viral gastroenteritis. Will trial some soft foods and if he tolerates will discharge home.
--- NOTE | 2016-11-07 12:04 | DS ---
CC: Dr. Velásquez DISCHARGE SUMMARY: DATE OF ADMISSION: 11/04/16 DATE OF DISCHARGE: 11/07/16 PRIMARY CARE PHYSICIAN: Kt Velásquez MD PRINCIPAL DISCHARGE DIAGNOSIS: Possible small bowel obstruction versus viral gastroenteritis. DISCHARGE MEDICATION REGIMEN: Omeprazole 20 mg daily DEVICE SALES CONSULTANT DURING HOSPITALIZATION: Neymar Nieto MD - Surgery IMAGING DONE DURING HOSPITALIZATION: CT abdomen and pelvis without contrast - impression: Distention with mild dilatation of proximal small bowel with transition and decompressed small bowel in the mid abdomen and consistent with early or partial small bowel obstruction. Fatty infiltrates noted in the liver. CT abdomen and pelvis with contrast, CT findings compatible with partial small bowel obstruction with transition point identified in the [id number] ileum at the mid level right abdomen hepatic steatosis. Abdominal ultrasound - impression: Echogenic liver consistent with hepatic steatosis. No evidence of cholelithiasis or biliary ductal dilatation. Abdomen X-ray - impression: Resolution of previous small bowel obstruction. HISTORY OF PRESENT ILLNESS AND HOSPITAL SUMMARY: Please see the full history and physical by Dr. Rodney Waterman for details. Briefly, Mr. Snyder is a 46- year-old man who presented to the hospital with abdominal pain, nausea, vomiting , and diarrhea. The patient's blood work is mostly unremarkable and he underwent imaging that showed possible early versus partial small bowel obstruction. The patient was made n.p.o. and was given analgesia and IV fluids. Surgery was consulted who did not feel if there is any surgical intervention needed. Over the next day or so, the patient had large multiple episodes of loose watery stool, was passing gas, still having intermittent abdominal pain. Dr. Nieto of Surgery felt that this may have actually just been a viral gastroenteritis from the onset. Either way, the patient's symptoms improved. He tolerated clear liquids and subsequently some soft foods with no worsening of his symptoms. His bowel movements slowed later in the the day prior to discharge. He will be discharged home to follow up with his PCP as an outpatient. TIME SPENT: Total time spent on this discharge 35 minutes. This is a a summary hospitalization. Please see the full medical record for further details. [id number]/[facility] #: [id number] [facility]
== END 2016-11-07 15:10 | disposition home or self-care (01) | DRG 247 ==
LOC: ED 18:23 → MED 11-05 01:44
PROVIDERS: ADMIT Hospitalist; ATTEND Hospitalist
DX: K56.60 Unspecified intestinal obstruction (principal); K76.0 Fatty (change of) liver, not elsewhere classified; E83.42 Hypomagnesemia; A08.4 Viral intestinal infection, unspecified; R74.0 Nonspecific elevation of levels of transaminase and lactic acid dehydrogenase [LDH]; J45.909 Unspecified asthma, uncomplicated; Z87.891 Personal history of nicotine dependence; Z83.3 Family history of diabetes mellitus; Z82.61 Family history of arthritis
CPT/HCPCS: 36415; 74000; 74176; 74177; 76705; 80048; 80053; 80076; 81003; 82150; 83690; 83735; 85025; 86140; 90732; 94760; 99212; A9270-GY; G0463; J1170; J1644; J1885; J2270; J2405; J3475; Q9967

== ENCOUNTER 2018-06-29 08:29 | Emergency (ER) | payer OTHER ==
--- OUTSIDE RECORDS SUMMARY | 2018-06-29 08:34 | XMS REPORT | Continuity of Care Document ---
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 Kt Velásquez MD Primary Care Physician Unavailable Payers Type Date Identification Numbers Payment Provider Subscriber Policy Number: [id number] [facility] Dangelo Snyder JR PayID: [id number] [address] [place] [address] Advance Directives Description No Information Available Problems Date Description Provider Status Onset: 01/13/2017 Allergic rhinitis due to pollen Renan Machuca MD Active Onset: 01/13/2017 Allergic rhinitis Renan Machuca MD Active Onset: 01/13/2017 Uncomplicated moderate persistent Renan Machuca MD Active asthma Family History Description No Information Available Social History Type Date Description Comments Sex Unknown Smoke-Free Home is smoke-free Pets Animals sleep in bedroom Pets 1 cat Pets 1 dog Tobacco Use Start: Unknown Never Smoked Cigarettes Smoking Status Reviewed: 06/17/18 Never Smoked Cigarettes Allergies, Adverse Reactions, Alerts Description No Known Drug Allergies Medications Medication Date Status Form Strength Qnty SIG Indications Ordering Provider Singulair 08/25/ Active Tablets 10mg 30tab 10mg by Renan Posey s mouth daily Clara Machuca MD at bedtime Xyzal 01/13/ Active Tablets 5mg 30tab 1 tab by J30.1 Renan Posey s mouth every Clara Machuca MD day as needed Proair HFA / Active Unknown 0000 Symbicort / Active Aerosol 160-4.5mc 1unit 2 puff Christopher 0000 g/Act s twice a day Clara Machuca MD Prednisone 08/25/ Hx Tablets 5mg 60tab 6 tablets Wilfredophteresa 2016 - s (30 mg) by Clara Machuca MD 09/22/ mouth twice 2017 a day x 5 days Medrol 10/30/ Hx TBPK 4mg 21uni take as Christopher 2017 - ts directed Clara Machuca MD 2016 Prednisone 10/23/ Hx Tablets 5mg 60tab 6 tablets Christopher 2016 - s (30 mg) by Clara Machuca MD 01/13/ mouth twice 2017 a day x 5 days Hydroxyzine 04/20/ Hx Tablets 10mg 60tab 1 to 3 tabs Jorge, HCL 2015 - s every 6 JuvenalNICK-C 01/13/ hours as 2017 needed for itching Xyzal 11/01/ Hx Tablets 5mg 90tab take 1 Wilfredophteresa 2015 - s tablet (5 Clara Machuca MD 01/13/ mg) by oral 2017 route daily Hydroxyzine 06/17/ Hx Tablets 25mg take 1 Unknown HCL 2014 - tablet (25 01/13/ mg) by oral 2017 route 4 times per day as needed Qvar 07/06/ Hx Aerosol 80mcg/Act 26.1g inhale 2 Wilfredopher 2014 - m puffs (80 Clara Machuca MD 09/22/ mcg/actuati 2016 on) by inhalation route 2 times a day Qnasl 10/10/ Hx Aerosol 80mcg/Act spray 2 gms Unknown 2013 - (80 09/22/ mcg/actuati 2016 on) by nasal route daily Cialis / Hx Tablets 5mg take 1 Unknown 0000 - tablet (5 06/17/ mg) by oral 2018 route once daily Oxybutynin / Hx Unknown Chloride ER 0000 - 2016 Esomeprazole / Hx Capsules 40mg Unknown Magnesium 0000 - DR 2017 Medications Administered in Office Medication Date Status Form Strength Qnty SIG Indications Ordering Provider Allergy 06/06/ Administered Injection Christopher Injection 2 2017 Clara Machuca MD Or More Allergy 05/20/ Administered Injection Christopher Injection 2 2017 Clara Machuca MD Or More Allergy 05/06/ Administered Injection Christopher Injection 2 2017 Clara Machuca MD Or More Allergy 07/20/ Administered Injection Christopher Injection 2 2017 Clara Machuca MD Or More Allergy 04/15/ Administered Injection Injection 1 Injection 2 2017 Or More Allergy // Administered Injection Christopher Injection 2 2017 Clara Machuca MD Or More Allergy // Administered Injection Christopher Injection 2 2017 Clara Machuca MD Or More Allergy 01/21/ Administered Injection Christopher Injection 2 2017 Clara Machuca MD Or More Allergy // Administered Injection Christopher Injection 2 2017 Clara Machuca MD Or More Allergy 04// Administered Injection Christopher Injection 2 2017 Clara Machuca MD Or More Allergy // Administered Injection Christopher Injection 2 2017 Clara Machuca MD Or More Allergy // Administered Injection Christopher Injection 2 2017 Clara Machuca MD Or More Allergy 11/08/ Administered Injection Christopher Injection 2 2017 Clara Machuca MD Or More Allergy 10/22/ Administered Injection Christopher Injection 2 2017 Clara Macuhca MD Or More Allergy 10/08/ Administered Injection Christopher Injection 2 2017 Clara Machuca MD Or More Allergy 09/22/ Administered Injection Christopher Injection 2 2016 Clara Machuca MD Or More Allergy 09/03/ Administered Injection Christopher Injection 2 2016 Clara Machuca MD Or More Allergy 08/18/ Administered Injection Christopher Injection 2 2016 Clara Machuca MD Or More Allergy // Administered Injection Christopher Injection 2 2016 Clara Machuca MD Or More Allergy 07/16/ Administered Injection Christopher Injection 2 2016 Clara Machuca MD Or More Allergy // Administered Injection Christopher Injection 2 2016 Clara Machuca MD Or More Allergy 06/25/ Administered Injection Christopher Injection 2 2016 Clara Machuca MD Or More Allergy 06/14/ Administered Injection Christopher Injection 2 2016 Clara Machuca MD Or More Allergy 05/14/ Administered Injection Christopher Injection 2 2016 Clara Machuca MD Or More Allergy 04/23/ Administered Injection Christopher Injection 2 2016 Clara Machuca MD Or More Allergy 04/09/ Administered Injection Christopher Injection 2 2016 Clara Machuca MD Or More Allergy 03/19/ Administered Injection Christopher Injection 2 2016 Clara Machuca MD Or More Allergy // Administered Injection Christopher Injection 2 2016 Clara Machuca MD Or More Allergy 01/13/ Administered Injection Christopher Injection 2 2016 Clara Machuca MD Or More Allergy 12/11/ Administered Injection Christopher Injection 2 2016 Clara Machuca MD Or More Allergy // Administered Injection Christopher Injection 2 2016 Clara Machuca MD Or More Allergy 11/13/ Administered Injection Christopher Injection 2 2016 Clara Machuca MD Or More Allergy // Administered Injection Christopher Injection 2 2016 Clara Machuca MD Or More Allergy 10/07/ Administered Injection Christopher Injection 2 2016 Clara Machuca MD Or More Allergy 09/11/ Administered Injection Christopher Injection 2 2015 Clara Machuca MD Or More Allergy 08/28/ Administered Injection Christopher Injection 2 2015 Clara Machuca MD Or More Allergy 08/14/ Administered Injection Christopher Injection 2 2015 Clara Machuca MD Or More Allergy 07/24/ Administered Injection Christopher Injection 2 2015 Clara Machuca MD Or More Allergy 07/10/ Administered Injection Christopher Injection 2 2015 Clara Machuca MD Or More Allergy 06/12/ Administered Injection Christopher Injection 2 2015 Clara Machuca MD Or More Allergy 05/22/ Administered Injection Christopher Injection 2 2015 Clara Machuca MD Or More Allergy // Administered Injection Christopher Injection 2 2015 Clara Machuca MD Or More Allergy 04/20/ Administered Injection Christopher Injection 2 2015 Clara Machuca MD Or More Allergy 04/13/ Administered Injection Christopher Injection 2 2015 Clara Machuca MD Or More Allergy 04/06/ Administered Injection Christopher Injection 2 2015 Clara Machuca MD Or More Allergy 03/20/ Administered Injection Christopher Injection 2 2015 lCara Machuca MD Or More Allergy 02/25/ Administered Injection Christopher Injection 2 2015 Clara Machuca MD Or More Allergy 02/20/ Administered Injection Christopher Injection 2 2015 Clara Machuca MD Or More Allergy 02/04/ Administered Injection Christopher Injection 2 2015 Clara Machuca MD Or More Allergy // Administered Injection Christopher Injection 2 2015 Clara Machuca MD Or More Allergy // Administered Injection Christopher Injection 2 2015 Clara Machuca MD Or More Allergy 12/24/ Administered Injection Christopher Injection 2 2015 Clara Machuca MD Or More Allergy // Administered Injection Christopher Injection 2 2015 Clara Machuca MD Or More Allergy 03/04/ Administered Injection Christopher Injection 2 2015 Clara Machuca MD Or More Allergy 11/22/ Administered Injection Christopher Injection 2 2015 Clara Machuca MD Or More Allergy 11/15/ Administered Injection Christopher Injection 2 2015 Clara Machuca MD Or More Allergy 11/01/ Administered Injection Christopher Injection 2 2015 Clara Machuca MD Or More Allergy 10/25/ Administered Injection Christopher Injection 2 2015 Clara Machuca MD Or More Allergy 10/11/ Administered Injection Christopher Injection 2 2015 Clara Machuca MD Or More Allergy 09/25/ Administered Injection Christopher Injection 2 2014 Clara Machuca MD Or More Allergy 09/13/ Administered Injection Christopher Injection 2 2014 Clara Machuca MD Or More Allergy 08/16/ Administered Injection Christopher Injection 2 2014 Clara Machuca MD Or More Allergy 07/26/ Administered Injection Christopher Injection 2 2014 Clara Machuca MD Or More Allergy 07/17/ Administered Injection Injection 1 Injection 2 2015 Or More Immunizations Description No Information Available Vital Signs Date Vital Result Comment 06/17/2018 4:13pm BP Systolic 126 mmHg BP Diastolic 88 mmHg Height 68 inches 5'8" Weight 204.00 lb BMI (Body Mass Index) 31.0 kg/m2 Heart Rate 89 /min Respiratory Rate 18 /min Body Temperature 97.6 F O2 % BldC Oximetry 99 % 09/22/2017 3:32pm BP Systolic 120 mmHg BP Diastolic 80 mmHg Height 68 inches 5'8" Weight 199.00 lb BMI (Body Mass Index) 30.3 kg/m2 Heart Rate 81 /min Respiratory Rate 10 /min Body Temperature 96.4 F O2 % BldC Oximetry 97 % 08/25/2017 3:25pm Height 68 inches 5'8" Weight 199.00 lb BMI (Body Mass Index) 30.3 kg/m2 Heart Rate 91 /min Respiratory Rate 16 /min Body Temperature 95.7 F O2 % BldC Oximetry 95 % 01/13/2017 4:25pm BP Systolic 122 mmHg BP Diastolic 94 mmHg Height 68 inches 5'8" Weight 196.00 lb BMI (Body Mass Index) 29.8 kg/m2 Heart Rate 71 /min Respiratory Rate 14 /min Body Temperature 97.6 F O2 % BldC Oximetry 95 % 06/17/2015 4:27pm BP Systolic 132 mmHg BP Diastolic 90 mmHg Height 68 inches Weight 190.00 lb Heart Rate 84 /min 02/13/2013 3:04pm BP Systolic 127 mmHg BP Diastolic 78 mmHg Height 68 inches Weight 195.00 lb Heart Rate 81 /min Results Test Date Facility Test Result H/L Range Note Order 06/17/2018 [facility] Nitric Oxide <pending> PFT Supplies <pending> PFT With Bronchodilator <pending> Procedures Date Code Description Status 06/17/2018 20464 Nitric Oxide Gas Determination Completed 06/17/2018 09519 Bronchodilation Responsiveness Spirometry Pre/Post Completed Bronchodil Adm 06/06/2018 81655 Allergy Injection 2 Or More Completed 05/20/2018 02889 Allergy Injection 2 Or More Completed 05/06/2018 73754 Allergy Injection 2 Or More Completed 04/15/2018 89357 Allergy Injection 2 Or More Completed 04/15/2018 11276 Allergy Injection 2 Or More Completed 02/25/2018 97064 Allergy Injection 2 Or More Completed 02/07/2018 80344 Allergy Injection 2 Or More Completed 01/21/2018 43498 Allergy Injection 2 Or More Completed 01/07/2018 61787 Allergy Injection 2 Or More Completed 01/07/2018 54835 Allergy Antigens Mult Dose Vials, Five Insect Venoms Completed 01/07/2018 54213 Allergy Antigens Single Or Multiple Completed 12/27/2017 52166 Allergy Injection 2 Or More Completed 12/10/2017 33911 Allergy Injection 2 Or More Completed 11/26/2017 91850 Allergy Injection 2 Or More Completed 11/08/2017 72196 Allergy Injection 2 Or More Completed 10/22/2017 97447 Allergy Injection 2 Or More Completed 10/08/2017 76124 Allergy Injection 2 Or More Completed 09/22/2017 36558 Bronchodilation Responsiveness Spirometry Pre/Post Completed Bronchodil Adm 09/22/2017 09371 Bronchodilation Responsiveness Spirometry Pre/Post Completed Bronchodil Adm 09/22/2017 42739 Nitric Oxide Gas Determination Completed 09/22/2017 66565 Nitric Oxide Gas Determination Completed 09/22/2017 69066 Allergy Injection 2 Or More Completed 09/03/2017 13521 Allergy Injection 2 Or More Completed 08/25/2017 61631 Nitric Oxide Gas Determination Completed 08/25/2017 19146 Nitric Oxide Gas Determination Completed 08/25/2017 68722 Bronchodilation Responsiveness Spirometry Pre/Post Completed Bronchodil Adm 08/25/2017 50758 Bronchodilation Responsiveness Spirometry Pre/Post Completed Bronchodil Adm 08/18/2017 10033 Allergy Injection 2 Or More Completed 08/06/2017 25163 Allergy Injection 2 Or More Completed 08/04/2017 01126 Allergy Antigens Single Or Multiple Completed 07/16/2017 66770 Allergy Injection 2 Or More Completed 07/09/2017 37542 Allergy Injection 2 Or More Completed 06/25/2017 87395 Allergy Injection 2 Or More Completed 06/14/2017 32118 Allergy Injection 2 Or More Completed 05/14/2017 18696 Allergy Injection 2 Or More Completed 04/23/2017 23358 Allergy Injection 2 Or More Completed 04/09/2017 03569 Allergy Injection 2 Or More Completed 03/19/2017 73971 Allergy Injection 2 Or More Completed 02/26/2017 50717 Allergy Injection 2 Or More Completed 01/13/2017 39467 Allergy Injection 2 Or More Completed 01/13/2017 93819 Nitric Oxide Gas Determination Completed 01/13/2017 46811 Bronchodilation Responsiveness Spirometry Pre/Post Completed Bronchodil Adm 12/11/2016 85596 Allergy Injection 2 Or More Completed 12/02/2016 88901 Allergy Antigens Single Or Multiple Completed 11/27/2016 14029 Allergy Injection 2 Or More Completed 11/13/2016 84947 Allergy Injection 2 Or More Completed 10/30/2016 08959 Allergy Injection 2 Or More Completed 10/07/2016 65040 Allergy Injection 2 Or More Completed 09/11/2016 57068 Allergy Injection 2 Or More Completed 08/28/2016 13804 Allergy Injection 2 Or More Completed 08/14/2016 37333 Allergy Injection 2 Or More Completed 07/24/2016 77624 Allergy Injection 2 Or More Completed 07/10/2016 17777 Allergy Injection 2 Or More Completed 06/12/2016 84219 Allergy Injection 2 Or More Completed 05/22/2016 64398 Allergy Injection 2 Or More Completed 05/04/2016 76644 Allergy Injection 2 Or More Completed 05/01/2016 96966 Allergy Antigens Single Or Multiple Completed 04/20/2016 46255 Allergy Injection 2 Or More Completed 04/13/2016 80641 Allergy Injection 2 Or More Completed 04/06/2016 22486 Allergy Injection 2 Or More Completed 03/20/2016 44248 Allergy Injection 2 Or More Completed 02/26/2016 86074 Allergy Injection 2 Or More Completed 02/21/2016 25724 Allergy Injection 2 Or More Completed 02/05/2016 51164 Allergy Injection 2 Or More Completed 01/27/2016 96150 Allergy Injection 2 Or More Completed 01/03/2016 98171 Allergy Injection 2 Or More Completed 12/25/2015 47066 Allergy Injection 2 Or More Completed 12/13/2015 91105 Allergy Injection 2 Or More Completed 11/29/2015 60131 Allergy Injection 2 Or More Completed 11/22/2015 90956 Allergy Injection 2 Or More Completed 11/15/2015 01295 Allergy Injection 2 Or More Completed 11/01/2015 77443 Allergy Injection 2 Or More Completed 10/25/2015 82581 Allergy Injection 2 Or More Completed 10/11/2015 32228 Allergy Injection 2 Or More Completed 09/25/2015 45746 Allergy Injection 2 Or More Completed 09/13/2015 30217 Allergy Injection 2 Or More Completed 08/16/2015 47373 Allergy Injection 2 Or More Completed 07/26/2015 03035 Allergy Injection 2 Or More Completed 07/17/2015 01378 Allergy Injection 2 Or More Completed Encounters Type Date Location Provider Dx Diagnosis Office Visit 06/17/2018 [place] DAYAMI Hayes J45.40 Moderate persistent 3:30p asthma, uncomplicated J30.1 Allergic rhinitis due to pollen J30.89 Other allergic rhinitis Office Visit 09/22/2017 2:45p MICK Patel J30.89 Other allergic rhinitis J30.1 Allergic rhinitis due to pollen J45.40 Moderate persistent asthma, uncomplicated Office Visit 08/25/2017 3:00p MICK Patel J45.40 Moderate persistent asthma, uncomplicated J30.89 Other allergic rhinitis J30.1 Allergic rhinitis due to pollen Office Visit 01/13/2017 3:30p [place] Renan Machuca J30.1 Allergic rhinitis MD due to pollen J30.89 Other allergic rhinitis J45.40 Moderate persistent asthma, uncomplicated Plan of Treatment Future Appointment(s):07/01/2018 3:25 pm - Injection 1 at [id number]/17/2018 - DAYAMI HayesJ45.40 Moderate persistent asthma, uncomplicatedComments:Patient' s PFT is within normal limits exhaled nitric oxide is elevated at 38 ppb. Patient to restart Symbicort for prophylaxis of his lungs and pro-air for breakthrough chest symptoms patient to take Xyzal as needed for breakthrough nasal symptoms.Patient will continue to receive his allergen immunotherapy injections.Follow up:6 months, PFT and NIOX [id number] Allergic rhinitis due to qelimnV84.89 Other allergic rhinitis
[2018-06-29 08:48] VITALS: BP 136/89
--- NOTE | 2018-06-29 09:23 | UC ---
Neck Pain HPI - HPI Summary HPI Summary: The patient is a 48-year-old male with a 3 day history of neck pain radiating down to his left hand. He states he has a history of a herniated disc in his left C6-C7 region. He said that this was diagnosed many years ago. He has painful range of motion with his left back and he has numbness around the elbow but extending to his left thumb and index finger. Sometimes his arm feels weak any K tank tender things as strongly as before. Denies any chest pain or shortness of breath or Headache. - History of Current Complaint Chief Complaint: UCUpperExtremity Stated Complaint: L SHOULDER PAIN Time Seen by Provider: 06/29/18 09:12 Hx Obtained From: Patient Mechanism Of Injury: No Known Trauma Timing: Constant Onset/Duration: Gradual Onset, Lasting Days Severity: Severe Pain Intensity: 10 Pain Scale Used: 0-10 Numeric Location: Diffuse Character: Aching, Spasmotic Aggravating Factors: Movement Associated Signs & Symptoms: Positive: Paresthesia - Allergies/Home Medications Allergies/Adverse Reactions: Allergies Allergy/AdvReac Type Severity Reaction Status Date / Time MS Dust Mite Extract Allergy Sneezing Verified 06/29/18 08:40 [Dust Mite Extract] ANIMAL HAIR Allergy Sneezing Uncoded 06/29/18 08:40 [place] Allergy Unknown Uncoded 06/29/18 08:40 Reaction Details PMH/Surg Hx/FS Hx/Imm Hx Previously Healthy: Yes Other History Of: Negative For: HIV, Hepatitis B, Hepatitis C, Anticoagulant Therapy - Surgical History Surgical History: Yes Surgery Procedure, Year, and Place: ANKLE SURGERY;. BACK (L5) DISCECTOMY 2003; . RIGHT HAND SURGERY X2;. VASECTOMY; - Family History Known Family History: Positive: Cardiac Disease, Hypertension - Social History Alcohol Use: Rare Substance Use Type: None Smoking Status (MU): Current Every Day Smoker Type: Smokeless Tobacco Amount Used/How Often: 1 tin per week Have You Smoked in the Last Year: No When Did the Patient Quit Smoking/Using Tobacco: one year long ago - Immunization History Most Recent Influenza Vaccination: August 2016 Most Recent Tetanus Shot: UNSURE Most Recent Pneumonia Vaccination: NONE Review Of Systems Constitutional: Positive: Negative Skin: Positive: Negative Eyes: Positive: Negative ENT: Positive: Negative Respiratory: Positive: Negative Cardiovascular: Positive: Negative Gastrointestinal: Positive: Negative Genitourinary: Positive: Negative Musculoskeletal: Positive: Arthralgia, Myalgia Neurological: Positive: Numbness - left arm Psychological: Positive: Negative All Other Systems Reviewed And Are Negative: Yes Physical Exam Triage Information Reviewed: Yes Appearance: Well-Appearing, No Pain Distress, Well-Nourished Vital Signs: Initial Vital Signs Temp 98 F 06/29/18 08:40 Pulse 87 06/29/18 08:40 Resp 16 06/29/18 08:40 BP 136/89 06/29/18 08:40 Pulse Ox 99 06/29/18 08:40 Vital Signs Reviewed: Yes Eyes: Positive: Conjunctiva Clear ENT: Positive: Hearing grossly normal. Negative: Pharyngeal erythema, Nasal congestion, Tonsillar swelling, Tonsillar exudate, Sinus tenderness, Uvula midline Dental Exam: Normal Neck: Positive: Tenderness @ - left tapezius and left rhomboid, Other: - linited ROM lneck. Negative: Supple Respiratory: Positive: Lungs clear, Normal breath sounds, No respiratory distress, No accessory muscle use Cardiovascular: Positive: RRR, No Murmur Musculoskeletal: Positive: ROM Intact, No Edema Neurological: Positive: Alert, Other: - subjective decreaded sensation left FA / elbow, good cap refill, DTRs symmetrical strenth 5/5 Psychological Exam: Normal Skin Exam: Normal Diagnostics - Radiology No standard instances Xray Interpretation: Positive (See Comments) - IMPRESSION: DEGENERATIVE DISC DISEASE MOST PROMINENT AT THE C6-C7 AND C7-T1 LEVELS Radiology Interpretation Completed By: Radiologist Neck Pain Course/Dx - Differential Dx/Diagnosis Provider Diagnoses: cervical radiulopathy Discharge - Sign-Out/Discharge Documenting (check all that apply): Patient Departure All imaging exams completed and their final reports reviewed: Yes - Discharge Plan Condition: Stable Disposition: HOME Prescriptions: Naproxen Sodium [Naproxen Sodium 500 MG TAB] 500 mg PO BID PRN #30 tab PRN Reason: Pain Patient Education Materials: Cervical Radiculopathy (ED), Soft Cervical Collar (ED) Referrals: Giana Gonzalez MD [Medical Doctor] - As Soon As Possible Willy Tolbert MD [Primary Care Provider] - If Needed Additional Instructions: recheck for new or worsening symptoms I suspect you will need an MRI to further access your symptoms - Billing Disposition and Condition Condition: STABLE Disposition: Home
--- NOTE | 2018-06-29 09:46 | RAD ---
INDICATION: Left cervical radiculopathy. COMPARISON: Comparison is made with a prior study from July 28, 2005. TECHNIQUE: AP, open-mouth odontoid, oblique and lateral films were obtained. FINDINGS: C1-T1 are visualized. The vertebra are in normal alignment. No prevertebral soft tissue swelling or fracture is seen. There is moderate to severe disc space narrowing and mild uncinate process spurring present at the C6-C7 and C7-T1 levels. There is mild to moderate bilateral neural foraminal narrowing at the C3-C4 level and mild to moderate bilateral neural foraminal narrowing at the C6-C7 level which is more prominent on the right side. IMPRESSION: DEGENERATIVE DISC DISEASE MOST PROMINENT AT THE C6-C7 AND C7-T1 LEVELS.
[2018-06-29] MEDS ORDERED: Naproxen TAB* 250 MG PO ONE (09:53)
== END 2018-06-29 10:17 | disposition home or self-care (01) ==
LOC: UCEAST 08:29
DX: M54.12 Radiculopathy, cervical region (principal); F17.200 Nicotine dependence, unspecified, uncomplicated; Z91.048 Other nonmedicinal substance allergy status
CPT/HCPCS: 72050; 99212; A9270-GY; G0463

== ENCOUNTER 2019-08-31 09:30 | Day surgery (SDC) | payer OTHER ==
[~2019-08-31 09:30] MED LIST: Buffered Lidocaine 1% SYRIN* 1 ML/SYRINGE INTRADERM ONE; Famotidine IV* 10 MG/ML 2 ML (20 mg) IV ONE; Lactated Ringers 1000 ML Bag* 1,000 ML IV SCH
[2019-08-31] MEDS ORDERED: ceFAZolin 2 GM in NS PREMIX(*) 2 GM/100 ML BAG IVPB ONE (09:36)
[2019-08-31] MEDS ORDERED: Famotidine IV* 10 MG/ML 2 ML (20 mg) ONE (09:36)
[2019-08-31] MEDS ORDERED: Bupivacaine 0.25% SDV PF* 10 ML VIAL INJ ONE (11:06)
[2019-08-31] MEDS ORDERED: Bupivacaine 0.25% SDV* 30 ML ONE (11:12)
[2019-08-31] MEDS ORDERED: Midazolam* 1 MG/ML 5 ML VIAL (5 MG) ONE (11:13)
[2019-08-31] MEDS ORDERED: DiMENhydriNATE IV* 50 MG/ML VIAL IV PUSH PRN (11:25)
[2019-08-31] MEDS ORDERED: Naloxone* 0.4 MG/ML 1 ML VIAL IV PRN (11:25)
[2019-08-31] MEDS ORDERED: HYDROcodone/ACETAMIN 5-325 MG* 1 TAB PO PRN (11:25)
[2019-08-31] MEDS ORDERED: fentaNYL* 50 MCG/ML 2 ML VIAL (100 MCG VIAL) ONE (12:07)
[2019-08-31] MEDS ORDERED: Ketorolac INJ* 30 MG/ML 1 ML VIAL ONE (12:23)
[2019-08-31] MEDS ORDERED: Ondansetron INJ* 2 MG/ML VIAL ONE (12:23)
[2019-08-31] MEDS ORDERED: Lidocaine 2% PF * 5 ML VIAL ONE (12:23)
[2019-08-31] MEDS ORDERED: Propofol* 10 MG/ML 20 ML BTL ONE (12:23)
[2019-08-31] MEDS ORDERED: HYDROmorphone INJ* 0.5 MG/0.5 ML SYRINGE ONE (13:09)
[2019-08-31 15:43] VITALS: BP 125/86
--- NOTE | 2019-08-31 20:47 | OP ---
DATE OF OPERATION: 08/31/19 - [facility] DATE OF : 70 SURGEON: Warner Cannon MD MANAGER [employer]: DAYAMI Martinez. An curriculum assistant was needed for the entirety of the procedure to aid in positioning of the arm and retraction. ANESTHESIOLOGIST: Dr. Hubbard. ANESTHESIA: General. PRE-OP DIAGNOSES: 1. Right ulnar nerve instability and neuritis. 2. Right index trigger finger. 3. 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 POST-OP DIAGNOSES: 1. Right ulnar nerve instability and neuritis. 2. Right index trigger finger. 3. 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 OPERATIVE PROCEDURE: 1. Right ulnar nerve anterior transmuscular transposition. 2. Right index finger trigger finger release. 3. 1 cm skin Z-plasty over the right middle finger MCP joint flexion crease. INDICATIONS: Mr. Snyder has the aforementioned conditions. We talked about treatment options, risks and benefits. He wanted to proceed with surgery. ESTIMATED BLOOD LOSS: 2 mL. COMPLICATIONS: None. FINDINGS: See above and below. DESCRIPTION OF PROCEDURE: Mr. Snyder was seen in the preoperative holding area. The correct side, site, and procedure were identified. We came back to the operating room where the arm was prepped and draped in the usual fashion and a time-out was performed. The arm was exsanguinated with the Esmarch and the tourniquet was inflated to 225 mmHg. I first marked out a 1 cm Z-plasty incorporating the MCP joint flexion crease of the right middle finger. I then raised a full thickness skin flaps and mobilized the flaps, taking care to preserve the underlying digital nerve. The skin contracture was at the site of a prior surgery. There were about 60 degree flaps and they rearranged such a way to get adequate skin length. The skin was then closed with 4-0 nylon suture. I then made a 1 cm incision over the A1 oswaldo area with the right index finger. Full thickness flaps were raised off the tendon sheath. The entirety of the A1 oswaldo was released with the 15 blade. I released just the leading edge of the A2 oswaldo and then the fascia proximal to the A1 oswaldo. At this point, the wound was irrigated out and the skin was closed with 4-0 nylon suture. I then made a curvilinear incision centered over the cubital tunnel. Dissection was carried down. A prominent medial antebrachial cutaneous nerve was identified and protected throughout the procedure. The ulnar nerve was then decompressed and releasing the superficial FCU fascia splitting the 2 ends of the FCU and then releasing the subfascial layer. Loomis's ligament was then released and then the fascia proximally was released all the way up past the arcade of [place] with the use of an appendiceal retractor. I then placed a vessel loop around the ulnar nerve. A neurolysis was performed. There were some very prominent vessels that were cauterized. I then raised step cut fascial flaps in the flexor pronator fascia. I excised the medial intramuscular septum. I released and excise the leading edge of the FCU fascia and a little bit of the FCU muscle. I then released the muscular septi in the flexor pronator muscle bed. At this point, everything was looking good, so I went ahead and transposed the nerve. The 2 ends of the fascial flaps were sewn end-to-end to provide a loose fascial sling to keep the nerve in a transposed position. Hemostasis was obtained with a Bovie and the bipolar throughout the procedure. At this point, everything was looking good. The wound was irrigated out. Subcutaneous tissue was reapproximated with 3-0 Vicryl, skin was closed with 3-0 Monocryl and Steri-Strips. 0.25% Marcaine was infiltrated all about the operative areas. He was placed in a long arm splint with the lateral buttress. He was taken to the recovery room in stable condition. [id number]/[facility] #: [id number] VINCENT
== END 2019-08-31 15:36 | disposition home or self-care (01) ==
LOC: OREAST 09:30
PROVIDERS: ATTEND Orthopaedic Surgery Hand Surgery
DX: G56.21 Lesion of ulnar nerve, right upper limb (principal); M65.321 Trigger finger, right index finger; L90.5 Scar conditions and fibrosis of skin; J45.909 Unspecified asthma, uncomplicated; Z72.0 Tobacco use
CPT/HCPCS: J0690; J1170; J1885; J2250; J2405; J2704; J3010; J3490